=== PATIENT | female | born 1950 | race Two or more races ===

== ENCOUNTER 2018-04-23 19:38 | Inpatient (IN) | payer OTHER, MEDICAID ==
[~2018-04-23] VITALS: Ht 154.9 cm; Wt 58.5 kg
--- NOTE | 2018-04-23 19:59 | NUR ---
pt aaox4, in no distress, BIBA from [facility] on hold for danger to self, pt denies SI/HI at this time.Pt has no medical complaints.Brething even ulabored,abd soft non distended with +BS, denies urinary symptoms,skin w/d to touch with good skin turgor, pt in bed, bed in low postion, locked, SR up X2 for safety HOB, all suicidal safety measures met. will continue to monitor pt.
[2018-04-23] MEDS ORDERED: HYDR25TA4 PO ×2 (20:02→20:32)
[2018-04-23] MEDS ORDERED: BENA40TA8 PO ×2 (20:02→20:32)
--- NOTE | 2018-04-23 20:14 | NUR ---
report called spoke to Kimberly STEVENS, awaiting X-Ray and then transfer pt Psych Unit, pt in no distress
[2018-04-23] MEDS ORDERED: AMLO5TAB2 PO (20:32)
[2018-04-23] MEDS ORDERED: THIA100T74 PO (20:32)
[2018-04-23] MEDS ORDERED: MULT1TAB73 PO (20:32)
[2018-04-23] MEDS ORDERED: LORA1TAB PO (20:32)
[2018-04-23] MEDS ORDERED: FOLI1TAB16 PO (20:32)
[2018-04-23] MEDS ORDERED: RISP0.5T5 PO (20:32)
[2018-04-23] MEDS ORDERED: TRAZ-182 PO (20:32)
--- NOTE | 2018-04-23 21:15 | NUR ---
PATIENT BROUGHT IN FROM ER VIA WC ADMITTED TO MHU ROOM 140 B . PATIENT ALERT AND ORIENTED X 2, AMBULATORY, ANXIOUS RESTLESS. PATIENT REFUSED BODY ASSESSMENT . V/S WNL . LEFT MESSAGE FOR DR. HORN FOR ADMITTING ORDERS AND CIARRA LOPEZ FOR MEDICATION RECONCILIATION. NO C/O OF PAIN OR ANY DISCOMFORT
--- NOTE | 2018-04-23 21:30 | NUR ---
SPOKE TO THE DAUGHTER NELA AND INFORMED THAT PATIENT IS ADMITTED TO THE HOSPITAL TO ROOM 140 B PATIENT ALSO SPOKE WITH THE DAUGHTER.
[2018-04-23] MEDS ORDERED: MAGNESIUM HYDROXIDE 30 ML LIQUID UDC PO PRN (22:15)
[2018-04-23] MEDS ORDERED: MAG HYDROX/AL HYDROX/SIMETH 30 ML LIQUID UDC PO PRN (22:15)
[2018-04-23] MEDS ORDERED: ACETAMINOPHEN 325 MG TABLET PO PRN (22:15)
[2018-04-23] MEDS: TEMAZEPAM 7.5 MG CAPSULE PO PRN (22:29)
[2018-04-23 22:31] VITALS: BP 116/64
[2018-04-23] MEDS: LORAZEPAM 0.5 MG TABLET PO PRN (23:28)
[2018-04-24] MEDS: LORAZEPAM 0.5 MG TABLET PO PRN (01:16)
[2018-04-24 06:55] LABS: BASOPHILS % (AUTO) 0.8 % (0.0-2.0); EOSINOPHILS # (AUTO) 0.1 K/uL (0.0-0.7); EOSINOPHILS % (AUTO) 3.4 % (0.0-7.0); HEMATOCRIT 33.4 % (31.2-41.9); HEMOGLOBIN 11.5 g/dL (10.9-14.3); LYMPHOCYTES # (AUTO) 2.1 K/uL (20.0-40.0); LYMPHOCYTES % (AUTO) 55.9 % (20.5-51.5); MEAN CORPUSCULAR HEMOGLOBIN 33.6 uug (24.7-32.8); MEAN CORPUSCULAR HGB CONC 34 g/dL (32.3-35.6); MEAN CORPUSCULAR VOLUME 97.6 fL (75.5-95.3); MONOCYTES # (AUTO) 0.5 K/uL (2.0-10.0); MONOCYTES % (AUTO) 12.8 % (0.0-11.0); NEUTROPHILS % (AUTO) 27.1 % (38.5-71.5); PLATELET COUNT (AUTO) 294 K/uL (179-408); RED BLOOD CELL COUNT(AUTO) 3.42 MIL/uL (3.63-4.92); WHITE BLOOD COUNT (AUTO) 3.7 K/uL (3.8-11.8)
[2018-04-24 07:06] LABS: CREATININE 0.9 mg/dL (0.6-1.3); POTASSIUM 4.1 mmol/L (3.5-5.1)
[2018-04-24 08:00] VITALS: BP 106/70
[2018-04-24] MEDS: FOLIC ACID 1 MG TABLET PO SCH (08:43)
[2018-04-24] MEDS: THIAMINE HCL 100 MG TABLET PO SCH (08:43)
[2018-04-24] MEDS: MULTIVITAMINS,THERAPEUTIC TABLET PO SCH (08:44)
[2018-04-24] MEDS: BENAZEPRIL HCL 20 MG TABLET PO SCH (09:00)
[2018-04-24] MEDS: AMLODIPINE 5 MG TABLET PO SCH (09:00)
[2018-04-24] MEDS: HYDROCHLOROTHIAZIDE 25 MG TABLET PO SCH (09:00)
[2018-04-24] MEDS: SERTRALINE HCL 50 MG TABLET PO SCH (13:30)
[2018-04-24 20:00] VITALS: BP 132/84
[2018-04-24] MEDS: risperiDONE-M 0.5 MG TAB.RAPDIS PO SCH (20:09)
[2018-04-24] MEDS: BENZTROPINE MESYLATE 0.5 MG TABLET PO SCH (20:09)
[2018-04-25] MEDS: TEMAZEPAM 7.5 MG CAPSULE PO PRN (00:12)
[2018-04-25 07:30] VITALS: BP 121/67
[2018-04-25] MEDS: AMLODIPINE 5 MG TABLET PO SCH (09:00)
[2018-04-25] MEDS: HYDROCHLOROTHIAZIDE 25 MG TABLET PO SCH (09:00)
[2018-04-25] MEDS: BENAZEPRIL HCL 20 MG TABLET PO SCH (09:00)
[2018-04-25] MEDS: THIAMINE HCL 100 MG TABLET PO SCH (09:15)
[2018-04-25] MEDS: FOLIC ACID 1 MG TABLET PO SCH (09:15)
[2018-04-25] MEDS: MULTIVITAMINS,THERAPEUTIC TABLET PO SCH (09:15)
[2018-04-25] MEDS: SERTRALINE HCL 50 MG TABLET PO SCH (12:24)
[2018-04-25 16:41] VITALS: BP 125/61
[2018-04-25 20:18] VITALS: BP 140/77
[2018-04-25] MEDS: BENZTROPINE MESYLATE 0.5 MG TABLET PO SCH (20:46)
[2018-04-25] MEDS: risperiDONE-M 0.5 MG TAB.RAPDIS PO SCH (20:46)
[2018-04-26 07:30] VITALS: BP 101/53
[2018-04-26] MEDS: FOLIC ACID 1 MG TABLET PO SCH (08:35)
[2018-04-26] MEDS: THIAMINE HCL 100 MG TABLET PO SCH (08:35)
[2018-04-26] MEDS: MULTIVITAMINS,THERAPEUTIC TABLET PO SCH (08:36)
[2018-04-26] MEDS: HYDROCHLOROTHIAZIDE 25 MG TABLET PO SCH (08:36)
[2018-04-26] MEDS: AMLODIPINE 5 MG TABLET PO SCH (08:37)
[2018-04-26] MEDS: BENAZEPRIL HCL 20 MG TABLET PO SCH (08:37)
--- NOTE | 2018-04-26 09:00 | NUR ---
received a 67 y/o female pt as a case of danger to slef, walking into traffic. depression. pt alert Ox3. seems to be pleasant no S.I.
[2018-04-26] MEDS: SERTRALINE HCL 50 MG TABLET PO SCH (12:31)
--- NOTE | 2018-04-26 13:14 | NUR ---
Firearms Report: Network Systems Engineer completed and submitted [employer] Firearms Report on 04/26/18 for Danger to Self certification.
--- NOTE | 2018-04-26 13:18 | NUR ---
UR Note: Spoke with Rubin at [facility] Customer Service ([phone]). Assigned Senior Compensation Consultant is Justina (direct line: [phone]). AMY provided clinicals over the phone to Justina. Awaiting authorization. SW will continue to follow-up. Addendum: 04/26/18 at 1548 by JOSH TRAMMELL SW Received call from [facility] Senior Compensation Consultant, Justina ([phone]) with Authorization from 04/23/18-04/25/18 #[id number]. Requesting Jisi-gj-Uwlr with Dr. More ([phone]) at 11:30am on 04/27/18. Dr. Menezes aware and agreeable. AMY will continue to follow-up.
--- NOTE | 2018-04-26 15:34 | NUR ---
Initial Discharge Instructions: Patient currently lives at home alone [[address] [facility] [address] [place] [address]; [phone]]. Per pt, she would like to return home upon discharge. Spoke with patient's daughter/DPOA, Goldie ([phone]) who states she would like to find SUNDAY or B&C placement for her mother. SW will continue to collaborate with pt, family, and MD regarding most appropriate discharge plan for this patient. SW will form a safe and proper discharge plan.
[2018-04-26 17:15] VITALS: BP 124/64
[2018-04-26] MEDS: BENZTROPINE MESYLATE 0.5 MG TABLET PO SCH (20:05)
[2018-04-26 20:14] VITALS: BP 145/71
[2018-04-26] MEDS ORDERED: risperiDONE-M 0.5 MG TAB.RAPDIS PO SCH (21:00)
[2018-04-26] MEDS: TEMAZEPAM 7.5 MG CAPSULE PO PRN (23:04)
[2018-04-27 07:30] VITALS: BP 119/71
[2018-04-27] MEDS: FOLIC ACID 1 MG TABLET PO SCH (08:33)
[2018-04-27] MEDS: MULTIVITAMINS,THERAPEUTIC TABLET PO SCH (08:34)
[2018-04-27] MEDS: HYDROCHLOROTHIAZIDE 25 MG TABLET PO SCH (08:34)
[2018-04-27] MEDS: THIAMINE HCL 100 MG TABLET PO SCH (08:34)
[2018-04-27] MEDS: BENAZEPRIL HCL 20 MG TABLET PO SCH (08:34)
[2018-04-27] MEDS: AMLODIPINE 5 MG TABLET PO SCH (08:35)
[2018-04-27] MEDS ORDERED: risperiDONE 0.25 MG TABLET PO SCH (09:00)
[2018-04-27] MEDS: SERTRALINE HCL 50 MG TABLET PO SCH (13:48)
[2018-04-27] MEDS: risperiDONE 0.25 MG TABLET PO SCH (13:48)
--- NOTE | 2018-04-27 15:49 | NUR ---
UR Note/Xxbo-iv-Lqia Note: Dr. Menezes participated in Yigl-bf-[id number] review. Patient was authorized an additional 3 days (04/26/-04/28) with review due on 04/28. New assigned MHN Painting Technician isSherice ([phone]). Auth #[id number]. SW will continue to follow-up.
[2018-04-27 16:58] VITALS: BP 132/59
[2018-04-27 19:30] VITALS: BP 125/59
[2018-04-27] MEDS: BENZTROPINE MESYLATE 0.5 MG TABLET PO SCH (20:08)
[2018-04-27] MEDS: risperiDONE-M 0.5 MG TAB.RAPDIS PO SCH (20:09)
[2018-04-28 07:30] VITALS: BP 137/50
[2018-04-28] MEDS: THIAMINE HCL 100 MG TABLET PO SCH (08:18)
[2018-04-28] MEDS: FOLIC ACID 1 MG TABLET PO SCH (08:18)
[2018-04-28] MEDS: HYDROCHLOROTHIAZIDE 25 MG TABLET PO SCH (08:19)
[2018-04-28] MEDS: BENAZEPRIL HCL 20 MG TABLET PO SCH (08:20)
[2018-04-28] MEDS: MULTIVITAMINS,THERAPEUTIC TABLET PO SCH (08:20)
[2018-04-28] MEDS: risperiDONE 0.25 MG TABLET PO SCH ×2 (08:20→13:08)
[2018-04-28] MEDS: AMLODIPINE 5 MG TABLET PO SCH (08:20)
[2018-04-28] MEDS: SERTRALINE HCL 50 MG TABLET PO SCH (13:08)
--- NOTE | 2018-04-28 16:00 | NUR ---
UR Note: AMY provided daily clinicals to [facility] Bookkeeping Machine Operator Sherice saldana ([phone]). Auth #[id number] from 04/23-04/28. AMY will continue to follow-up. Addendum: 04/29/18 at 0845 by JOSH REYES Received voicemail from [facility] Bookkeeping Machine OperatorSherice. Patient Authorized an additional 2 days (04/29-04/30) with review on 04/30. Auth#[id number]. AMY will continue to follow-up.
[2018-04-28 16:12] VITALS: BP 109/64
[2018-04-28 20:21] VITALS: BP 139/67
[2018-04-28] MEDS: BENZTROPINE MESYLATE 0.5 MG TABLET PO SCH (20:29)
[2018-04-28] MEDS: risperiDONE-M 0.5 MG TAB.RAPDIS PO SCH (20:30)
--- NOTE | 2018-04-28 23:06 | NUR ---
RECEIVED PATIENT IN HER ROOM AND WAS PLEASANT UPON APPROACH. SHE IS COMPLIANT WITH HER MEDS AND CARE. MADE NO COMPLIANT OF PAIN OR DISCOMFORT AND DENIES ANY SI/HI. WILL CONTINUE TO MONITOR.
--- NOTE | 2018-04-29 06:55 | NUR ---
SLEPT WELL FOR APPROX. 9 HRS.LODGED NO COMPLIANT FOR THE NIGHT
[2018-04-29 07:30] VITALS: BP 118/59
[2018-04-29] MEDS: THIAMINE HCL 100 MG TABLET PO SCH (08:49)
[2018-04-29] MEDS: FOLIC ACID 1 MG TABLET PO SCH (08:49)
[2018-04-29] MEDS: risperiDONE 0.25 MG TABLET PO SCH ×2 (08:49→13:02)
[2018-04-29] MEDS: MULTIVITAMINS,THERAPEUTIC TABLET PO SCH (08:49)
[2018-04-29] MEDS: HYDROCHLOROTHIAZIDE 25 MG TABLET PO SCH (08:50)
[2018-04-29] MEDS: BENAZEPRIL HCL 20 MG TABLET PO SCH (08:51)
[2018-04-29] MEDS: AMLODIPINE 5 MG TABLET PO SCH (08:52)
[2018-04-29] MEDS: SERTRALINE HCL 50 MG TABLET PO SCH (13:01)
[2018-04-29 15:19] VITALS: BP 105/48
[2018-04-29 20:32] VITALS: BP 121/60
[2018-04-29] MEDS: BENZTROPINE MESYLATE 0.5 MG TABLET PO SCH (20:32)
[2018-04-29] MEDS: risperiDONE-M 0.5 MG TAB.RAPDIS PO SCH (20:32)
--- NOTE | 2018-04-29 22:00 | NUR ---
received to care, ambulating in the hallway, pleasant upon approach. compliant with medications and staff direction. as of 2199, she appears to be asleep. no distress noted. will continue to monitor closely.
--- NOTE | 2018-04-30 06:00 | NUR ---
slept 7 hours. assisted with am care, and shower. no distress noted.
[2018-04-30 07:30] VITALS: BP 121/57
[2018-04-30] MEDS: risperiDONE 0.25 MG TABLET PO SCH ×2 (09:30→14:46)
[2018-04-30] MEDS: FOLIC ACID 1 MG TABLET PO SCH (09:30)
[2018-04-30] MEDS: BENAZEPRIL HCL 20 MG TABLET PO SCH (09:31)
[2018-04-30] MEDS: THIAMINE HCL 100 MG TABLET PO SCH (09:32)
[2018-04-30] MEDS: MULTIVITAMINS,THERAPEUTIC TABLET PO SCH (09:32)
[2018-04-30] MEDS: HYDROCHLOROTHIAZIDE 25 MG TABLET PO SCH (09:32)
[2018-04-30] MEDS: AMLODIPINE 5 MG TABLET PO SCH (09:32)
--- NOTE | 2018-04-30 11:57 | NUR ---
UR Note: AMY provided daily clinicals to [facility] Nail Setter Sherice ([phone]) for concurrent review due today (04/30/18). Auth #[id number]. AMY will continue to follow-up.
[2018-04-30] MEDS ORDERED: SERTRALINE HCL 50 MG TABLET PO SCH (13:00)
[2018-04-30] MEDS: SERTRALINE HCL 100 MG TABLET PO SCH (14:46)
[2018-04-30 15:54] VITALS: BP 122/53
--- NOTE | 2018-04-30 16:39 | NUR ---
Discharge Note: Patient will be discharged back home with her daughter, Goldie [[address], [address]; [phone]] via private transportation at 6pm. Patient was offered B&C placement, but refused. Spoke with pts daughter, Goldie ([phone]) who has agreed to provide transportation and is aware and agreeable with discharge plans. Patient is aware and agreeable with discharge plans. Patient denies any SI/HI and is cooperative. Patient will follow up with her Primary Care Physician, Dr. Tila Fisher [[address] [place] [address]; ] on May 11, 2018 at 8am. Patient will also follow-up with her Neurologist, Dr. Marysol Brooks [[address] [place] [address]; [phone]] on May 03, 2018 at 8am. Patient was provided with a list of Psychiatrists authorized through her insurance for outpatient care, the list included Dr. Buckley, Dr. Guevara, and Dr. Yoon. Patient will continue to receive IHSS, and is currently applying for Protective Services for 24-hour care. Patient was referred to Home Health for medication management. Spoke with Shanique at [facility] ([phone]) who states the patient is set up with [facility] ([phone]) with a start of care on 05/02/18 or 05/03/18. Patient was provided with a brief substance abuse intervention and was referred to [facility] , and [facility] . For smoking cessation, patient was referred to [employer] 771-LUNGUSA and [employer] [phone]. Patient was provided with outpatient mental health resources to [facility] Crisis Line , Katie Maharaj , and the National Suicide Prevention Lifeline . Addendum: 04/30/18 at 1640 by JOSH TRAMMELL SW [facility] (05/01/18) DISCHARGE NOTE
[2018-04-30] MEDS: risperiDONE-M 0.5 MG TAB.RAPDIS PO SCH (20:21)
[2018-04-30] MEDS: BENZTROPINE MESYLATE 0.5 MG TABLET PO SCH (20:21)
[2018-04-30 20:56] VITALS: BP 108/52
--- NOTE | 2018-05-01 06:44 | NUR ---
slept 7 hours. assisted with am care, and shower. no distress noted.
[2018-05-01 07:30] VITALS: BP 112/76
[2018-05-01] MEDS: BENAZEPRIL HCL 20 MG TABLET PO SCH (08:46)
[2018-05-01] MEDS: risperiDONE 0.25 MG TABLET PO SCH ×2 (08:47→12:25)
[2018-05-01] MEDS: FOLIC ACID 1 MG TABLET PO SCH (08:47)
[2018-05-01] MEDS: MULTIVITAMINS,THERAPEUTIC TABLET PO SCH (08:47)
[2018-05-01] MEDS: AMLODIPINE 5 MG TABLET PO SCH (08:47)
[2018-05-01] MEDS: HYDROCHLOROTHIAZIDE 25 MG TABLET PO SCH (08:47)
[2018-05-01] MEDS: THIAMINE HCL 100 MG TABLET PO SCH (08:47)
[2018-05-01] MEDS: LORAZEPAM 0.5 MG TABLET PO PRN (11:49)
--- NOTE | 2018-05-01 11:49 | NUR ---
medicated with ativan for anxiety and agitation due to conflicting ride going home. will monitor for safety and less anxiety.
[2018-05-01] MEDS: SERTRALINE HCL 100 MG TABLET PO SCH (12:25)
--- NOTE | 2018-05-01 13:00 | NUR ---
RELIEF FROM ANXIETY VERBALIZED
[2018-05-01 15:34] VITALS: BP 122/48
--- NOTE | 2018-05-01 18:10 | NUR ---
DISCHARGE PATIENT TO HOME IN STABLE CONDITION WITH DAUGHTER NELA. AWARE OF HOME INSTRUCTIONS AND FOLLOW UP, NEW PRESCRIPTIONS . BELONGINGS WITH PATIENTS, SIGNED .
== END 2018-05-01 18:10 | disposition home health service (06) | DRG 885 ==
LOC: ER 19:42 → GPS 21:05
PROVIDERS: ADMIT Psychiatry & Neurology Psychosomatic Medicine; ATTEND Hospitalist
DX: F33.3 Major depressive disorder, recurrent, severe with psychotic symptoms (principal); F03.90 Unspecified dementia, unspecified severity, without behavioral disturbance, psychotic disturbance, mood disturbance, and anxiety; Z91.5 Personal history of self-harm; Z79.899 Other long term (current) drug therapy; Z91.14 Patient's other noncompliance with medication regimen; I10 Essential (primary) hypertension; E78.5 Hyperlipidemia, unspecified; R63.4 Abnormal weight loss; Z68.24 Body mass index [BMI] 24.0-24.9, adult; F10.11 Alcohol abuse, in remission; Y90.9 Presence of alcohol in blood, level not specified; F41.9 Anxiety disorder, unspecified
CPT/HCPCS: 36415; 71045; 85025; 93005; A4663

== ENCOUNTER 2022-02-27 17:57 | Inpatient (IN) | payer MEDICARE, OTHER ==
[~2022-02-27] VITALS: Ht 154.9 cm; Wt 64.9 kg
[~2022-02-27 17:57] MED LIST: AMLO-212 PO; BENA40TA8 PO; FOLI1TAB94 PO; HYDR25TA4 PO; MULT-594 PO; THIA100T74 PO
--- NOTE | 2022-02-27 18:00 | NUR ---
Patient BIB ambulance from [facility] for medical clearance. Patient with history of depression, dementia, hyperlipidemia, bipolar, GERD. Vitals stable.
--- NOTE | 2022-02-27 18:07 | NUR ---
MD at bedside, medical screening exam in progress.
[2022-02-27] MEDS ORDERED: BENA40TA8 PO (18:24)
[2022-02-27] MEDS ORDERED: THIA100T13 PO (18:24)
[2022-02-27] MEDS ORDERED: MELO-105 PO (18:24)
[2022-02-27] MEDS ORDERED: QUET25TA PO (18:24)
[2022-02-27] MEDS ORDERED: MAG-55 PO (18:24)
[2022-02-27] MEDS ORDERED: ESTRADIOL 0.05 MG TD (18:24)
[2022-02-27] MEDS ORDERED: ACET-2154 PO (18:24)
[2022-02-27] MEDS ORDERED: DIVA125C2 PO (18:24)
[2022-02-27] MEDS ORDERED: DONE10TA11 PO (18:24)
[2022-02-27] MEDS ORDERED: ATOR80TA PO (18:24)
[2022-02-27] MEDS ORDERED: SERT25TA PO (18:24)
[2022-02-27] MEDS ORDERED: AMLO10TA59 PO (18:24)
[2022-02-27] MEDS ORDERED: MAGN400O6 PO (18:24)
[2022-02-27] MEDS ORDERED: IBUP-1955 PO (18:24)
[2022-02-27 18:30] LABS: *BILIRUBIN,URIN NEGATIVE (NEGATIVE); *BLOOD, URINE NEGATIVE (NEGATIVE); *CLARITY,URINE CLEAR (CLEAR); *COLOR,URINE YELLOW (YELLOW); *KETONES,URINE TRACE (NEGATIVE); *UROBILINOGEN,URINE 0.2 E.U./dl (NORMAL); LEUKOCYTE ESTERASE ,URINE TRACE (NEGATIVE); NITRITE, URINE NEGATIVE (NEGATIVE); UGLUCOSE NEGATIVE (NEGATIVE)
[2022-02-27 18:38] LABS: HEMATOCRIT 36.5 % (31.2-41.9); MEAN CORPUSCULAR HEMOGLOBIN 31.2 uug (24.7-32.8); MEAN CORPUSCULAR VOLUME 91.7 fL (75.5-95.3); PLATELET COUNT (AUTO) 285 K/uL (179-408)
[2022-02-27 18:50] LABS: BACTERIA,URINE FEW /HPF (NONE SEEN); RBC,URINE 0-3 /HPF (0-3); SQUAMOUS EPITHELIAL CELL,UR MODERATE /HPF (NONE SEEN)
[2022-02-27 18:57] LABS: *AMPHETAMINE, URINE NEGATIVE (NEGATIVE); *CANNABINOID, URINE NEGATIVE (NEGATIVE); *COCCAINE, URINE NEGATIVE (NEGATIVE); *OPIATE, URINE NEGATIVE (NEGATIVE); *PHENCYCLIDINE SCREEN,URINE NEGATIVE (NEGATIVE)
[2022-02-27 18:57] LABS: ALANINE AMINOTRANSFERASE 23 U/L (14-59); ALKALINE PHOSPHATASE 81 U/L (50-136); ASPARTATE AMINOTRANSFERASE 10 U/L (15-37); BILIRUBIN,DIRECT 0.1 mg/dL (0.0-0.2); BILIRUBIN,TOTAL 0.2 mg/dL (0.2-1.0); CARBON DIOXIDE 29 mmol/L (21-32); CHLORIDE 102 mmol/L (98-107); CREATININE 0.8 mg/dL (0.6-1.3); GLUCOSE 111 mg/dL (74-106); POTASSIUM 3.7 mmol/L (3.5-5.1); TOTAL PROTEIN, SERUM 7.4 g/dL (6.4-8.2); UREA NITROGEN, BLOOD 16 mg/dL (7-18)
[2022-02-27 18:59] LABS: ETHANOL < 3 MG/DL (0-0)
[2022-02-27 19:09] LABS: ACETAMINOPHEN < 2.0 ug/mL (10-30)
--- NOTE | 2022-02-28 00:30 | NUR ---
Report given to Mehnaz STEVENS.
[2022-02-28] MEDS ORDERED: ACETAMINOPHEN 325 MG TABLET PO PRN (01:00)
[2022-02-28] MEDS ORDERED: MAG HYDROX/AL HYDROX/SIMETH 30 ML LIQUID UDC PO PRN (01:00)
[2022-02-28] MEDS ORDERED: TEMAZEPAM 7.5 MG CAPSULE PO PRN (01:00)
[2022-02-28] MEDS ORDERED: MAGNESIUM HYDROXIDE 30 ML LIQUID UDC PO PRN (01:00)
[2022-02-28 01:15] VITALS: BP 146/66
--- NOTE | 2022-02-28 01:21 | NUR ---
pt taken to MHU via wheelchair with all belongings.
[2022-02-28] MEDS: LORAZEPAM 1 MG TABLET PO PRN (01:45)
--- NOTE | 2022-02-28 02:00 | NUR ---
GPS ADMISSION NOTE: Patient is a 71 year old female , brought to [facility] via ambulance from [facility]. Patient on a 5150 for DTS AND GD. Per the hold , the patient told staff at the facility that she would kill herself if she did not get to go home. She has been demanding, angry and having outbursts. Upon face to face, this patient is very forgetful, asking the same questions over and over. The patient denied ever having SI and is unable to remember where she came from and why. This report writer provided her with a copy of the Advisement and The patients right Handbook. The patient is anxious, paranoid and refuses to take any medications. She is unable to be reoriented of redirected for more than a few minutes at a time. This patient wonders around the unit , pacing non stop with argumentative and demanding behaviors. Safety Stratiges are in place. VS are stable. Continuing to monitor for escalating aggressive behavior, non compliance and SI.
--- NOTE | 2022-02-28 06:23 | NUR ---
Patient continues to pace, ask same questions over and over and refuse to take medications. Argumentative. 0.00 Sleep. Safety Stratiges are in place.
[2022-02-28 07:39] VITALS: BP 142/61
--- NOTE | 2022-02-28 10:50 | NUR ---
Gps/Master Esthetician- Daughter Goldie kearney ([phone]) claimed she has the DPOA ,but no papers noted on file , will request copy of the forms. Per daughter's request not to provide any informations to patient's boyfriend (Michael Moon)
--- NOTE | 2022-02-28 14:17 | NUR ---
SW Initial Discharge Note: Pt was brought to [facility]HU from [facility] located at [address] [place] [id number] ([phone]). SW will contact [facility] regarding pt's return upon discharge. SW will locate pt's daughters correct contact information to maintain proper communication throughout pt's hospitalization and to discuss discharge. SW will continue to work with pt, family and MD to ensure a safe and proper discharge plan.
--- NOTE | 2022-02-28 14:20 | NUR ---
Firearms Report: Banquet Chef completed and submitted a [employer] firearms report for 5150 a danger to herself and grave disability certifications. A copy of report has been placed in patient chart.
[2022-02-28 16:46] VITALS: BP 136/58
--- NOTE | 2022-02-28 17:00 | NUR ---
Gps/Master Cosmetologist- Constantly asking for the phone , patient forgets she just use the phone, kept dialing Hosp. ballast regulator operator. Constantly needing redirections.
[2022-02-28] MEDS: QUETIAPINE FUMARATE 25 MG TABLET PO SCH (20:16)
[2022-02-28] MEDS: DIVALPROEX 125 MG TABLET.DR PO SCH (20:16)
[2022-02-28] MEDS: DONEPEZIL 10 MG TABLET PO SCH (20:17)
[2022-02-28] MEDS: ATORVASTATIN 40 MG TABLET PO SCH (20:17)
[2022-02-28] MEDS ORDERED: Medication Not On Formulary EA (Atorvastatin Calcium (Lipitor) 80 MG) PO SCH (21:00)
[2022-02-28 22:02] VITALS: BP 167/61
[2022-03-01 08:04] VITALS: BP 127/65
[2022-03-01] MEDS ORDERED: Medication Not On Formulary EA (Benazepril Hcl 40 MG) PO SCH (09:00)
[2022-03-01] MEDS: CEphaleXIN 500 MG CAPSULE PO SCH ×2 (09:24→17:11)
[2022-03-01] MEDS: AMLODIPINE 10 MG TABLET PO SCH (09:24)
[2022-03-01] MEDS: SERTRALINE HCL 50 MG TABLET PO SCH (09:24)
[2022-03-01] MEDS: DIVALPROEX 125 MG TABLET.DR PO SCH ×2 (09:25→20:44)
[2022-03-01] MEDS: LISINOPRIL 20 MG TABLET PO SCH (09:25)
[2022-03-01] MEDS: MELOXICAM 7.5 MG TABLET PO SCH ×2 (09:27→17:09)
[2022-03-01] MEDS: THIAMINE HCL 100 MG TABLET PO SCH (09:29)
--- NOTE | 2022-03-01 11:08 | NUR ---
Gps/Chainstitch Sewing Machine Operator- Compliant with routine am meds. Reviewed medications with patient's daughter(Goldie),wants to know who orders such meds. , requesting to talk to the the Psychiatrist, reassured wiill have patient's Psychiatrist call her , as she requested.( Goldie- [phone] daughter)
[2022-03-01 16:09] VITALS: BP 118/55
[2022-03-01 20:00] VITALS: BP 122/59
[2022-03-01] MEDS: QUETIAPINE FUMARATE 25 MG TABLET PO SCH (20:44)
[2022-03-01] MEDS: ATORVASTATIN 40 MG TABLET PO SCH (20:45)
[2022-03-01] MEDS: DONEPEZIL 10 MG TABLET PO SCH (20:45)
[2022-03-02 07:41] VITALS: BP 128/56
[2022-03-02] MEDS: THIAMINE HCL 100 MG TABLET PO SCH (08:05)
[2022-03-02] MEDS: CEphaleXIN 500 MG CAPSULE PO SCH ×2 (08:05→17:31)
[2022-03-02] MEDS: DIVALPROEX 125 MG TABLET.DR PO SCH ×2 (08:06→20:27)
[2022-03-02] MEDS: SERTRALINE HCL 50 MG TABLET PO SCH (08:06)
[2022-03-02] MEDS: LISINOPRIL 20 MG TABLET PO SCH (08:07)
[2022-03-02] MEDS: MELOXICAM 7.5 MG TABLET PO SCH ×2 (08:11→17:31)
[2022-03-02] MEDS: AMLODIPINE 10 MG TABLET PO SCH (08:12)
[2022-03-02 16:23] VITALS: BP 120/50
--- NOTE | 2022-03-02 18:37 | NUR ---
Gps/Precision Printing Worker- Patient's daughter claimed her mother sounds better and hadbeen having appropriate responses during their conversations, per daughter , she wants to talk to the Tool Smith as well as the Primary Psychiatrist . Had been compliant with routine meds. no agitation, less anxious, remains forgetful , needing reminder and redirections from time to time.
[2022-03-02 20:15] VITALS: BP 120/64
[2022-03-02] MEDS: QUETIAPINE FUMARATE 25 MG TABLET PO SCH (20:27)
[2022-03-02] MEDS: ATORVASTATIN 40 MG TABLET PO SCH (20:28)
[2022-03-02] MEDS: DONEPEZIL 10 MG TABLET PO SCH (20:28)
--- NOTE | 2022-03-03 06:53 | NUR ---
Patient was more oriented last night. Able to engage in meaningful conversation and medication compliant. Forgetful at times but pleasant. The patient continues to Deny SI, and wants to be discharged [facility]. Total sleep hours were 7.[address] remain in place.
[2022-03-03 08:13] VITALS: BP 120/54
[2022-03-03] MEDS: MELOXICAM 7.5 MG TABLET PO SCH ×2 (08:50→17:36)
[2022-03-03] MEDS: LISINOPRIL 20 MG TABLET PO SCH (08:51)
[2022-03-03] MEDS: CEphaleXIN 500 MG CAPSULE PO SCH ×2 (08:51→17:00)
[2022-03-03] MEDS: DIVALPROEX 125 MG TABLET.DR PO SCH ×2 (08:51→20:59)
[2022-03-03] MEDS: AMLODIPINE 10 MG TABLET PO SCH (08:52)
[2022-03-03] MEDS: THIAMINE HCL 100 MG TABLET PO SCH (08:53)
[2022-03-03] MEDS: SERTRALINE HCL 50 MG TABLET PO SCH (09:10)
--- NOTE | 2022-03-03 15:33 | NUR ---
patient is forgetful, constantly needing for redirections , kept asking for the phone and want to talk to her tax lawyer regarding her 14 days hold, continue limit setting .compliant with all medication ,will continue close monitoring.
[2022-03-03 16:24] VITALS: BP 120/60
[2022-03-03 19:47] VITALS: BP 132/63
[2022-03-03] MEDS: DONEPEZIL 10 MG TABLET PO SCH (20:59)
[2022-03-03] MEDS: QUETIAPINE FUMARATE 25 MG TABLET PO SCH (20:59)
[2022-03-03] MEDS: ATORVASTATIN 40 MG TABLET PO SCH (21:03)
--- NOTE | 2022-03-03 22:19 | NUR ---
PATIENT RECEIVED AWAKE AND INTERACTING WITH PEERS. PATIENT IN NO APPARENT DISTRESS, PATIENT DENIES PAIN AT THIS TIME. PATIENT IS COMPLAINT WITH MEDICATION. PATIENT IS AMBULATORY AND SELF CARE. PATIENT DENIES SI. SAFETY PRECAUTIONS RENDERED, BED IN LOWEST POSITION, BED LOCKED, AND BED ALARM ON WHILE IN BED.
[2022-03-04 07:30] VITALS: BP 114/59
[2022-03-04] MEDS: CEphaleXIN 500 MG CAPSULE PO SCH ×2 (09:02→20:45)
[2022-03-04] MEDS: MELOXICAM 7.5 MG TABLET PO SCH ×2 (09:02→17:02)
[2022-03-04] MEDS: SERTRALINE HCL 50 MG TABLET PO SCH (09:03)
[2022-03-04] MEDS: AMLODIPINE 10 MG TABLET PO SCH (09:04)
[2022-03-04] MEDS: LISINOPRIL 20 MG TABLET PO SCH (09:04)
[2022-03-04] MEDS: DIVALPROEX 125 MG TABLET.DR PO SCH ×2 (09:06→20:45)
[2022-03-04] MEDS: THIAMINE HCL 100 MG TABLET PO SCH (09:06)
--- NOTE | 2022-03-04 11:20 | NUR ---
AMY Family Contact: Pt's daughter, Goldie ([phone]) contacted AMY and stated that she would like pt to return to [facility] upon discharge. Goldie stated that the pt needs to go back to a snf and is not in a proper condition to take care of herself. AMY asked Goldie about pt's significant other and Goldie stated that there is a restraining order against him and he cannot contact her. Goldie stated that her mother is forgetful. AMY stated that she will be properly discharged to [facility] upon discharge. Goldie stated that her mother does not like that she is the DPOA and pt can become agitated for that reason. Goldie stated that her mother cannot return to her home and live alone.
[2022-03-04 15:30] VITALS: BP 99/40
[2022-03-04 19:57] VITALS: BP 132/49
--- NOTE | 2022-03-04 20:30 | NUR ---
RECEIVED PATIENT IN THE DAY ROOM. SHE IS NOTED A/O X 2 TO 3. SHE CONTINUE FIXED ON BEEN DISCHARGED AND GOING HOME. PATIENT HAS POOR INSIGHT AND JUDGMENT INTO HER ADMISSION TO MHU. SHE STATED, "I GUESS YOU CAN'T EVEN SAY THAT I WANTED TO BECAUSE THEY MAKE A BIG DEAL AND NOW I AM STUCK IN THIS PLACE. I DIDN'T MEAN IT". PATIENT DENIED SI. SHE DENIED AH/VH SHE IS ABLE TO VERBALLY CFS. DENIAL IS CONVINCING. V/S are stable. patient in no distress. PO fluid and snacks were provided. she is reassured for her safety. Safety and fall precautions are in place. will continue to monitor q15 min head checks.
[2022-03-04] MEDS: ATORVASTATIN 40 MG TABLET PO SCH (20:45)
[2022-03-04] MEDS: QUETIAPINE FUMARATE 25 MG TABLET PO SCH (20:45)
[2022-03-04] MEDS: DONEPEZIL 10 MG TABLET PO SCH (20:45)
[2022-03-05 07:30] VITALS: BP 93/46
[2022-03-05] MEDS: LISINOPRIL 20 MG TABLET PO SCH (09:00)
[2022-03-05] MEDS: AMLODIPINE 10 MG TABLET PO SCH (09:00)
[2022-03-05] MEDS: CEphaleXIN 500 MG CAPSULE PO SCH ×2 (09:06→20:47)
[2022-03-05] MEDS: DIVALPROEX 125 MG TABLET.DR PO SCH ×2 (09:07→20:47)
[2022-03-05] MEDS: SERTRALINE HCL 50 MG TABLET PO SCH (09:07)
[2022-03-05] MEDS: THIAMINE HCL 100 MG TABLET PO SCH (09:07)
[2022-03-05] MEDS: MELOXICAM 7.5 MG TABLET PO SCH ×2 (09:07→17:54)
--- NOTE | 2022-03-05 12:31 | NUR ---
GPS: 14 DAY HOLD [facility] HEARING DONE WITH PROBABLE CAUSE OF GRAVE DISABILITY ONLY. PT AND PSYCHIATRIST MADE AWARE.
--- NOTE | 2022-03-05 15:12 | NUR ---
GPS: PT WITH EPISODE OF SARCASM TO STAFF SPECIALLY WHEN ASKING FOR A CONTACT NUMBER AND USING THE PHONE TO CALL OUTSIDE. PT FIXATED WITH CALLING A CERTAIN LAW FIRM, PT EVEN MENTIONING "CAN I HAVE THE PHONE NUMBER OF MY LESBIAN BITCH DAUGHTER". PT VERBALLY ABUSIVE AT TIMES WITH STAFF. LIKES PACING ON THE HALLWAY AND SOMETIMES HAVE CONVERSATION WITH OTHER PEERS. PT PARTICIPATES WITH GROUP THERAPY.
[2022-03-05 16:00] VITALS: BP 110/58
[2022-03-05 20:00] VITALS: BP 137/69
[2022-03-05] MEDS: QUETIAPINE FUMARATE 25 MG TABLET PO SCH (20:47)
[2022-03-05] MEDS: DONEPEZIL 10 MG TABLET PO SCH (20:47)
[2022-03-05] MEDS: ATORVASTATIN 40 MG TABLET PO SCH (20:52)
[2022-03-05] MEDS: LORAZEPAM 1 MG TABLET PO PRN (22:54)
--- NOTE | 2022-03-06 06:07 | NUR ---
GPS: PT SLEPT 8.15 HOURS. DURING THE EARLY SHIFT, PT WAS FIXATED ON USING THE PHONE, TRYING TO CALL EVEN ROUTE DRIVER SALESPERSON. PT DENIES PAIN OR DISCOMFORT. NO ANXIETY NOTED.
[2022-03-06 07:40] VITALS: BP 133/53
[2022-03-06] MEDS: MELOXICAM 7.5 MG TABLET PO SCH ×2 (08:42→17:03)
[2022-03-06] MEDS: CEphaleXIN 500 MG CAPSULE PO SCH (08:42)
[2022-03-06] MEDS: LISINOPRIL 20 MG TABLET PO SCH (08:42)
[2022-03-06] MEDS: THIAMINE HCL 100 MG TABLET PO SCH (08:43)
[2022-03-06] MEDS: DIVALPROEX 125 MG TABLET.DR PO SCH ×2 (08:43→20:45)
[2022-03-06] MEDS: AMLODIPINE 10 MG TABLET PO SCH (08:43)
[2022-03-06] MEDS: SERTRALINE HCL 50 MG TABLET PO SCH (08:43)
--- NOTE | 2022-03-06 15:21 | NUR ---
AMY Family Contact Update: AMY contacted pt's daughter, Goldie ([phone]) to discuss the final discharge plan for 03/06/22 to [facility] [address] [facility] [address] ([phone]). AMY was not able to get connected and not able to leave a voicemail. Goldie is aware of the plan from previously discussed and she is agreeable. SW contacted today to discuss the final day and time.
[2022-03-06 16:00] VITALS: BP 117/62
--- NOTE | 2022-03-06 18:00 | NUR ---
Gps/Shear Helper- Patient aware of discharge plan tomorrow ,making appropriate reponses, claimed she's ready . Stayed in the activity room during her meals. Ambulates around, ind. with knee brace r knee. ,< pain.
[2022-03-06 20:00] VITALS: BP 114/60
[2022-03-06] MEDS: DONEPEZIL 10 MG TABLET PO SCH (20:44)
[2022-03-06] MEDS: ATORVASTATIN 40 MG TABLET PO SCH (20:44)
[2022-03-06] MEDS: QUETIAPINE FUMARATE 25 MG TABLET PO SCH (20:44)
[2022-03-07 07:46] VITALS: BP 95/55
[2022-03-07] MEDS: MELOXICAM 7.5 MG TABLET PO SCH (08:45)
[2022-03-07] MEDS: THIAMINE HCL 100 MG TABLET PO SCH (08:45)
[2022-03-07] MEDS: DIVALPROEX 125 MG TABLET.DR PO SCH (08:45)
[2022-03-07] MEDS: SERTRALINE HCL 50 MG TABLET PO SCH (08:45)
[2022-03-07 08:49] VITALS: BP 95/55
[2022-03-07] MEDS: AMLODIPINE 10 MG TABLET PO SCH (08:49)
[2022-03-07] MEDS: LISINOPRIL 20 MG TABLET PO SCH (08:49)
--- NOTE | 2022-03-07 11:51 | NUR ---
Gps/Crayon Grader- Called [facility] , report was given to Serafin STEVENS , informed discharge time at 1300(Ambulance pickle solution maker) Patient was well informed of her discharge , has all valuables with her (2 rings , right knee brace) .
--- NOTE | 2022-03-07 13:37 | NUR ---
Gps/Core Shaper- Discharge to [facility] via ambulance, patient anxious, about going back to her facility.denies pain, no discomfort, all valuables given back to patient. Discharged in good spirit, with no new complaints noted.
--- NOTE | 2022-03-10 08:37 | NUR ---
AMY Discharge Note On 03/07/22: Pt will be discharged to [facility] [address] [place] [address] ([phone]) via Ambulance transportation at 1PM. AMY spoke with admin coordinator, Roxann at the facility who states they are ready to accept the patient today. Pt is aware and agreeable with discharge plans. Pts daughter, LINA Amezcua ([phone]) is aware and agreeable with the discharge plan. Pt is alert and oriented x2(name and place), is unable to plan for self-care at this time; however, is willing to accept care at SNF. Pt denies any suicidal or homicidal ideation. Pt will follow-up at the facility with Psychiatrist, Dr. Guevara and Client Associate, Dr. Loving. Pt presents with calm mood and congruent affect. PHARMACY: [facility] ([phone]) [address] [place] [address].
== END 2022-03-07 13:45 | DRG 885 ==
LOC: ER 17:59 → GPS 23:00
PROVIDERS: ADMIT Nurse Practitioner Psychiatric/Mental Health; ATTEND Nurse Practitioner Acute Care
DX: F31.9 Bipolar disorder, unspecified (principal); N39.0 Urinary tract infection, site not specified; F03.91 Unspecified dementia, unspecified severity, with behavioral disturbance; F29 Unspecified psychosis not due to a substance or known physiological condition; E66.9 Obesity, unspecified; Z59.9 Problem related to housing and economic circumstances, unspecified; I10 Essential (primary) hypertension; Z73.6 Limitation of activities due to disability; Z68.27 Body mass index [BMI] 27.0-27.9, adult; Z20.822 Contact with and (suspected) exposure to COVID-19
CPT/HCPCS: 36415; 80164; 85025; 87086; 97161; A4663; G0480